=== PATIENT | male | born 1980 | race Two or more races ===

== ENCOUNTER 2016-07-19 05:12 | Observation (INO) | payer SELFPAY ==
[~2016-07-19 05:12] MED LIST: DELTASONE10 MG PO; HYDROCORTISONE RC; LEVAQUIN500 MG PO; NO HOME MEDS; PREDNISONE10 MG PO; PROMETHAZINE V118 M2 PO; TYLENOL EXTRA500 MG PO; ZITHROMAX TRI-500 M1 PO
[2016-07-19 06:14] LABS: BASO % 0.1 % (0-2); EOS % 0.9 % (0-7); EOSINOPHIL ABSOLUTE COUNT 0.1 tho/cmm (0.0-0.7); HCT-HEMATOCRIT 42.7 % (36.0-53.5); HGB-HEMOGLOBIN 15.4 gm/dl (13.5-17.0); IMMATURE GRANULOCYTES ABSOLUTE 0.05 tho/cmm (0-0.03); IMMATURE GRANULOCYTES PERCENT 0.4 % (0-0.3); LYMPH % 9.8 % (20-45); LYMPH ABSOLUTE COUNT 1.4 tho/cmm (0.8-4.5); MCH (MEAN CORPUSCULAR HGB) 30.5 pg (28.0-32.0); MCHC MEAN CORPUSCULAR HGB CONC 36.1 % (32.0-36.0); MCV (MEAN CELL VOLUME) 84.6 fl (82.0-96.0); MEAN PLATELET VOLUME 10.3 cmc (9.4-12.4); MONOCYTE ABSOLUTE COUNT 1.3 tho/cmm (0.0-1.2); NEUTROPHIL ABSOLUTE COUNT 11.2 tho/cmm (1.6-8.0); NEUTROPHIL-AUTOMATED 11.2 tho/cmm (1.6-8.0); NEUTROPHILS % 79.8 % (40-80); PLATELET COUNT 239 tho/cmm (150-450); RED BLOOD COUNT 5.05 mil/cmm (4.40-5.70); RED CELL DISTRIBUTION WIDTH 13.3 % (12.4-16.4); WHITE BLOOD COUNT 14.1 tho/cmm (4.0-10.0)
[2016-07-19 06:31] LABS: ALB/GLOB RATIO 0.8 (0.8-2.0); ALBUMIN 3.3 g/dl (3.5-5.0); ALKALINE PHOSPHATASE 90 U/L (33-138); ALT/SGPT 37 U/L (12-78); ANION GAP 14 mmol/L (0-20); AST/SGOT 25 U/L (10-40); BILIRUBIN,TOTAL 1.7 mg/dl (0.0-1.5); BLOOD UREA NITROGEN 14 mg/dl (6-24); CALCIUM 8.6 mg/dl (8.5-10.5); CARBON DIOXIDE-VENOUS 25 mmol/L (22-32); CHLORIDE 105 mmol/l (96-110); CREATININE 1.61 mg/dl (0.60-1.30); GLUCOSE 128 mg/dL (70-110); POTASSIUM 3.8 mmol/L (3.7-5.1); SODIUM 140 mmol/L (135-145); eGFR VALUE FOR BLACK 62 mL/Min
[2016-07-19 06:42] LABS: URINE BILIRUBIN NEGATIVE (NEG); URINE BLOOD LARGE (NEG); URINE GLUCOSE (UA) NEGATIVE (NEG); URINE KETONE MODERATE (NEG); URINE LEUKOCYTE ESTERASE POSITIVE (NEG); URINE NITRITE NEGATIVE (NEG); URINE PROTEIN LARGE (NEG); URINE SPECIFIC GRAVITY 1.015 (1.003-1.030)
[2016-07-19 06:43] LABS: URINE APPEARANCE CLOUDY; URINE COLOR BROWN
[2016-07-19 06:50] LABS: URINE WBC 20-25 /[HPF] (0-5)
[2016-07-19 06:51] LABS: URINE AMORPHOUS 4+; URINE RBC 15-20 /[HPF] (0-5)
[2016-07-19 07:04] LABS: PROCALCITONIN 0.19 ng/ml (0.05-0.09)
[2016-07-20 05:22] LABS: BASO % 0.1 % (0-2); EOS % 2.8 % (0-7); EOSINOPHIL ABSOLUTE COUNT 0.3 tho/cmm (0.0-0.7); HCT-HEMATOCRIT 38.1 % (36.0-53.5); HGB-HEMOGLOBIN 13.3 gm/dl (13.5-17.0); IMMATURE GRANULOCYTES ABSOLUTE 0.04 tho/cmm (0-0.03); IMMATURE GRANULOCYTES PERCENT 0.4 % (0-0.3); LYMPH ABSOLUTE COUNT 1.6 tho/cmm (0.8-4.5); MCH (MEAN CORPUSCULAR HGB) 29.7 pg (28.0-32.0); MCHC MEAN CORPUSCULAR HGB CONC 34.9 % (32.0-36.0); MONO % 9.8 % (0-12); NEUTROPHILS % 70.9 % (40-80); PLATELET COUNT 216 tho/cmm (150-450); RED BLOOD COUNT 4.48 mil/cmm (4.40-5.70); RED CELL DISTRIBUTION WIDTH 13.4 % (12.4-16.4); WHITE BLOOD COUNT 9.9 tho/cmm (4.0-10.0)
[2016-07-20 05:32] LABS: ANION GAP 11 mmol/L (0-20); BLOOD UREA NITROGEN 11 mg/dl (6-24); CARBON DIOXIDE-VENOUS 26 mmol/L (22-32); CHLORIDE 114 mmol/l (96-110); CREATININE 1.27 mg/dl (0.60-1.30); GLUCOSE 118 mg/dL (70-110); POTASSIUM 4.3 mmol/L (3.7-5.1); SODIUM 147 mmol/L (135-145); eGFR VALUE FOR BLACK 83 mL/Min
[2016-07-20] MEDS ORDERED: IBUPROFEN800 M1 PO (09:21)
[2016-07-20] MEDS ORDERED: TYLENOL325 M2 PO (09:23)
[2016-07-20] MEDS ORDERED: LEVAQUIN750 M1 PO (09:25)
[2016-10-06] MEDS ORDERED: NO HOME MEDICATION XX (15:12)
[2016-10-06] MEDS ORDERED: KEFLEX500 M4 PO (17:53)
== END 2016-07-20 09:55 ==
LOC: EDMED 05:12 → EMR2 08:18 → CAR1 12:48
PROVIDERS: Emergency Medicine; Nurse Practitioner; ADMIT Family Medicine
DX: J18.9 Pneumonia, unspecified organism (principal); A41.9 Sepsis, unspecified organism; N17.9 Acute kidney failure, unspecified; R31.9 Hematuria, unspecified; R73.9 Hyperglycemia, unspecified
CPT/HCPCS: G0378; G8978-GP-CH; G8979-GP-CH; G8980-GP-CH; J0456; J0696; J1956; J7030; J7050